=== PATIENT | female | born 1975 | race Caucasian/White ===

== ENCOUNTER 2020-09-24 08:08 | Emergency (ER) | payer OTHER ==
--- NOTE | 2020-09-24 08:37 | CT ---
CT head without IV contrast: Multiple axial tomograms obtained through the head without IV enhancement. INDICATIONS: Headache COMPARISON: None FINDINGS: Ventricles have normal size and position. No evidence of intracranial mass, hemorrhage, edema, or infarct. Visualized sinuses and mastoids appear clear. Bony calvarium appears unremarkable. IMPRESSION: No acute finding
[2020-09-24] MEDS ORDERED: Ketorolac Tromethamine 30 MG/ML VIAL ONE (10:28)
[2020-09-24] MEDS ORDERED: Ondansetron PF 4 MG/2 ML Vial ONE (10:29)
[2020-09-24 10:30] LABS: #Basophils 0.1 thou/uL (0.0-0.2); #Eosinphils 0.1 thou/uL (0.0-0.7); #Lymphocytes 1.7 thou/uL (1.20-3.40); #Monocytes 0.4 thou/uL (0.11-0.59); #Neutrophils 4.5 thou/uL (1.40-6.50); %Basophils 0.9 % (0.0-1.0); %Eosinophils 1.6 % (0.0-10.0); %Lymphocytes 25.8 % (21.0-51.0); %Monocytes 5.2 % (0.0-10.0); %Neutrophils 66.5 % (42.0-75.0); Hemoglobin 14.7 g/dL (12.0-16.0); Mean Corpuscular HGB CONC 33.8 g/dL (32.0-36.0); Mean Corpuscular Hemoglobin 30.3 pg (27.0-31.0); Mean Corpuscular Volume 89.6 fL (78.0-98.0); Mean Platelet Volume 8.2 fL (7.4-10.4); Platelet Count 171 thou/uL (130-400); RBC Distribution Width 12.1 % (11.5-14.5); Red Blood Cell (RBC) Count 4.86 mill/uL (4.20-5.40); White Blood Cell (WBC) Count 6.7 thou/uL (4.8-10.8)
[2020-09-24 10:33] LABS: Bilirubin Negative (Negative); Blood, Urine Negative (Negative); Clarity Clear (Clear); Glucose, Urine (Dipstick) Normal (Negative); Ketone, Urine Negative (Negative); Leukocyte Negative Leu/uL (Negative); Nitrite Negative (Negative); Protein, Urine (Dipstick) Negative (Neg-Trace); Specific Gravity, Urine 1.006 (1.002-1.036); Urobilinogen Normal mg/dL (Less than 2)
[2020-09-24 10:48] LABS: ALT (SGPT) 9 U/L (8-55); AST (SGOT) 14 U/L (5-34); Albumin 4.1 g/dL (3.5-5.0); Alkaline Phosphatase 52 U/L (40-110); Anion Gap 11 mmol/L (10-20); BUN (Urea Nitrogen) 7 mg/dL (7.0-18.7); Bilirubin, Total 0.4 mg/dL (0.2-1.2); Calc. Creatinine Clearance 0 mL/min (70-130); Calcium 8.6 mg/dL (7.8-10.44); Carbon Dioxide 24 mmol/L (22-29); Chloride 106 mmol/L (98-107); Globulin 3.1 g/dL (2.4-3.5); Glucose 102 mg/dL (70-105); Lipase 27 U/L (8-78); Potassium 3.7 mmol/L (3.5-5.1); Protein, Total 7.2 g/dL (6.0-8.3); Sodium 137 mmol/L (136-145)
[2020-09-24 10:49] LABS: BHCG - Serum Negative (NEGATIVE); Pregs Control Background? CLEAR/WHITE (CLR/WHITE); Pregs Control Bar Appear? YES (CONTROL BAR)
[2020-09-24] MEDS ORDERED: Iopamidol-370 76% 500 ML 1 ML ONE (10:55)
[2020-09-24] MEDS ORDERED: Iopamidol 370 76% 50 ML VIAL FS ONE (10:55)
--- NOTE | 2020-09-24 12:46 | CT ---
CT abdomen and pelvis with IV contrast. Oral contrast was administered. INDICATIONS: Abdominal pain COMPARISON: 05/30/2013 FINDINGS: Lung bases are clear Liver, spleen, and pancreas appear unremarkable. Postoperative changes at stomach again noted. Postcholecystectomy change. Adrenal glands appear normal. Kidneys appear unremarkable. Collecting structures and urinary bladder appear unremarkable. Subcentim eter cystic lesion superior left kidney is stable. Small bowel loops are normal caliber and exhibit normal fold pattern. Appendix not identified. Colon is unremarkable. Aorta is normal caliber. Inferior vena cava is prominent but similar appearance to the prior study. No evidence of retroperitoneal or mesenteric adenopathy. Uterus is mildly prominent for age. 1.7 cm left ovarian cyst. 1.0 cm right ovarian cyst. Small amount of free fluid in the deep pelvis. Subcutaneous tissues, abdominal wall, and muscular structures appear unremarkable. Posttraumatic changes right pelvis again noted. IMPRESSION: Prominent uterine fundus which has become more pronounced since prior study. Small bilateral ovarian cyst as described. Mildly dilated inferior vena cava, similar to prior exam. Consider congestion. Other findings as described.
--- NOTE | 2020-09-28 15:37 | EKG ---
Test Reason : Blood Pressure : / mmHG Vent. Rate : 085 BPM Atrial Rate : 085 BPM P-R Int : 142 ms QRS Dur : 074 ms QT Int : 350 ms P-R-T Axes : 080 063 031 degrees QTc Int : 416 ms Normal sinus rhythm Possible Left atrial enlargement Low voltage QRS Borderline ECG Confirmed by JOLENE MONTEMAYOR DO ([id number]), dictionary editor DEONTE BONDS ([id number]) on 09/28/2020 3:37:23 PM Referred By: Confirmed By:JOLENE MONTEMAYOR DO
== END 2020-09-24 13:35 | disposition home or self-care (01) ==
LOC: ERS 08:08
DX: S00.03XA Contusion of scalp, initial encounter (principal); R55 Syncope and collapse; R10.32 Left lower quadrant pain; Z87.891 Personal history of nicotine dependence; W22.8XXA Striking against or struck by other objects, initial encounter
CPT/HCPCS: 70450; 74177; 80053; 81003; 83690; 84703; 85025; 93005; 96374; 96375; J1885; J2405; Q9967

== ENCOUNTER 2022-10-29 08:24 | Outpatient (CLI) | payer BC | END 2022-10-29 08:25 | disposition home or self-care (01) | LOC: BICMAMMO 08:24 | PROVIDERS: ATTEND Internal Medicine Medical Oncology | DX: Z12.31 Encounter for screening mammogram for malignant neoplasm of breast (principal); Z80.3 Family history of malignant neoplasm of breast; Z98.82 Breast implant status | CPT/HCPCS: 77063; 77067 ==